=== PATIENT | male | born 1945 | race Caucasian/White ===

== ENCOUNTER 2019-03-30 15:02 | Emergency (ER) | payer OTHER, MEDICARE ==
[2019-03-30 15:19] VITALS: BP 145/88; PULSE 60; TEMP 97.4; BMI 40.3
[2019-03-30] MEDS ORDERED: ACETAMINOPHEN 325 MG TABLET (FP) PO ONE (15:47)
[2019-03-30] MEDS ORDERED: ACETAMINOPHEN 325 MG TABLET (FP) ONE (15:50)
--- NOTE | 2019-03-30 16:02 | PDOC ---
History of Present Illness - General Chief Complaint: Pain, Acute Stated Complaint: LT. KNEE PAIN/ FALL Time Seen by Provider: 03/30/19 15:23 History Source: Patient Exam Limitations: No Limitations Past History - Past Medical History Allergies/Adverse Reactions: Allergies Allergy/AdvReac Type Severity Reaction Status Date / Time No Known Allergies Allergy Verified 03/30/19 16:25 Home Medications: Ambulatory Orders Ascorbate Calcium [Vitamin C] 500 mg PO HS 12/07/15 Aspirin [ASA -] 81 mg PO HS 12/07/15 Atenolol [Tenormin -] 50 mg PO DAILY 12/07/15 Atorvastatin Ca [Lipitor] 20 mg PO DAILY 12/07/15 Multivit-Min/FA/Lycopen/Lutein [Centrum Silver Men Tablet] 1 each PO DAILY 03/30 Walker [Ultra-Light Rollator] 1 each MC DAILY #1 each 03/30/19 Anemia: No Asthma: No Cancer: No Cardiac Disorders: Yes (mi) CVA: No COPD: No CHF: No Dementia: No Diabetes: No GI Disorders: No Disorders: No HTN: Yes Hypercholesterolemia: Yes Liver Disease: No Seizures: No Thyroid Disease: No - Surgical History Abdominal Surgery: Yes Appendectomy: No Cardiac Surgery: Yes (STENTS) Cholecystectomy: No Lung Surgery: No Neurologic Surgery: No Orthopedic Surgery: No - Immunization History Immunization Up to Date: No - Suicide/Smoking/Psychosocial Hx Smoking Status: No Smoking History: Former smoker Have you smoked in the past 12 months: No Number of Cigarettes Smoked Daily: 0 If you are a former smoker, when did you quit?: 1989 Information on smoking cessation initiated: No Hx Alcohol Use: No Drug/Substance Use Hx: No *Physical Exam - Vital Signs Last Vital Signs Temp Pulse Resp BP Pulse Ox 97.4 F L 60 16 145/88 99 03/30/19 15:15 03/30/19 15:15 03/30/19 15:15 03/30/19 15:15 03/30/19 15:15 - Physical Exam General Appearance: No: Apparent Distress HEENT: positive: Other (no head trauma) Neck: positive: Supple Extremity: positive: Erythema, Other (skin abrasion to L knee, no active bleeding, surrounding erythema and warmth to L knee, able to flex L knee and extend most of the knee; no joint effusion, no deformity) Integumentary: positive: Warm. negative: Ecchymosis, Bruising Neurologic: positive: Alert, Normal Mood/Affect ED Treatment Course - RADIOLOGY Radiology Studies Ordered: Category Date Time Status KNEE 4 POS-LEFT [RAD] Stat Radiology 03/30/19 15:47 Ordered Medical Decision Making - Medical Decision Making 73 y/o M with hx of HTN, HLD, CAD s/p PR, gallstones with gallstone drain presents s/p mechanical fall today. States he was in [place] and missed 1 step and fell, landing predominantly on L knee. 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 Patient states his knee initially felt fine and he was able to ambulate on it but after a few hours, started noting pain to L knee. Denies head/neck trauma, LOC, dizziness, headache, neck pain, chest pain, fever. L knee xray negative for fracture Likely knee sprain Abrasion covered with Bacitracin; L knee chi-wrapped Will refer to orthopedics 03/30/19 16:43 *DC/Admit/Observation/Transfer Diagnosis at time of Disposition: Sprain, knee Qualifiers: Encounter type: initial encounter Involved ligament of knee: other ligament Laterality: left Qualified Code(s): S83.8X2A - Sprain of other specified parts of left knee, initial encounter - Discharge Dispostion Disposition: HOME Condition at time of disposition: Stable Decision to Admit order: No - Prescriptions Prescriptions: Walker [Ultra-Light Rollator] 1 each MC DAILY #1 each - Referrals Referrals: Josue Tran MD [Staff Physician] - 2 Days - Patient Instructions Printed Discharge Instructions: DI for Knee Sprain Additional Instructions: Thank you for choosing [facility]. It was a pleasure taking care of you. You may take Motrin 600 mg every 6 hours by mouth as needed for mild to moderate pain. Take Motrin with food. A prescription for walker was sent to your pharmacy You may apply ice for the first 48 hours and then switch to warm compresses You were referred to orthopedic doctor for further evaluation Return to the Emergency Department if your symptoms worsen or persist or have other concerning symptoms. - Post Discharge Activity
[2019-03-30] MEDS ORDERED: SULFAMETHOXAZOLE/TRIMETHOPRIM 800MG/160MG D.S. TABLET PO ONE (16:21)
[2019-03-30] MEDS ORDERED: CEPHALEXIN MONOHYDRATE 500 MG CAPSULE (UD) PO ONE (16:21)
[2019-03-30] MEDS ORDERED: SULFAMETHOXAZOLE/TRIMETHOPRIM 800MG/160MG D.S. TABLET ONE (16:26)
[2019-03-30] MEDS ORDERED: CEPHALEXIN MONOHYDRATE 500 MG CAPSULE (UD) ONE (16:26)
== END 2019-03-30 16:49 | disposition home or self-care (01) ==
LOC: JERFT 15:02
DX: S83.8X2A Sprain of other specified parts of left knee, initial encounter (principal); W10.9XXA Fall (on) (from) unspecified stairs and steps, initial encounter; Y93.89 Activity, other specified; Y92.22 Religious institution as the place of occurrence of the external cause; I10 Essential (primary) hypertension; E78.5 Hyperlipidemia, unspecified; I25.10 Atherosclerotic heart disease of native coronary artery without angina pectoris; I25.2 Old myocardial infarction
CPT/HCPCS: 73564-TC-LT-FY; 99281-25

== ENCOUNTER 2019-06-02 08:41 | Inpatient (IN) | payer OTHER, MEDICARE ==
--- NOTE | 2019-06-02 09:10 | PDOC ---
Attending Attestation - Resident Resident Name: Faustino Ruggiero - HPI HPI: 06/02/19 10:07 Pt presents to the ED complaining of 2 hours of substernal chest pain that began when he awoke from sleep. Also complaining of shortness of breath. Extensive cardiac history as described in resident note. Currently chest pain free. - Physicial Exam PE: 06/02/19 10:14 Agree with resident exam. PAtient is alert and oriented and in no acute distress. CV: RRR no m/r/g. Pulm: CTA b/l abdomen: soft, non tender, non distended Ext: no edema or tenderness - Medical Decision Making 06/02/19 11:11 Pt presents to the ED complaining of chest pain and shortness of breath. Currently chest pain free. EKG shows no ischemia, but, given history, will admit for observation for r/o MT.
[2019-06-02] MEDS ORDERED: ASPIRIN 81 MG CHEWABLE TABLETS PO ONE (09:47)
[2019-06-02] MEDS ORDERED: ASPIRIN 81 MG CHEWABLE TABLETS ONE (10:16)
[2019-06-02 10:37] LABS: BASO % 0.7 % (0-2.0); EOS % 1.4 % (0-4.5); HEMATOCRIT 39.3 % (35.4-49); HEMOGLOBIN 13.7 GM/dL (11.7-16.9); LYMPH % 16.5 % (8-40); MCH 31.5 pg (25.7-33.7); MCHC 34.8 g/dl (32.0-35.9); MEAN CELL VOLUME 90.4 fl (80-96); MEAN PLT VOLUME 8.1 fl (7.5-11.1); MONO % 4.7 % (3.8-10.2); NEUT % 76.7 % (42.8-82.8); RBC 4.35 M/mm3 (4.00-5.60); RDW 14.2 % (11.9-15.9); WHITE BLOOD COUNT 8.1 K/mm3 (4.0-10.0)
[2019-06-02 10:53] LABS: PLATELET COUNT 294 K/MM3 (134-434)
[2019-06-02 11:18] LABS: ALBUMIN 3.5 g/dl (3.4-5.0); ALK PHOS 138 U/L (45-117); ANION GAP 7 MMOL/L (8-16); BILIRUBIN,TOTAL 0.9 mg/dL (0.2-1); CALCIUM 9.4 mg/dL (8.5-10.1); CHLORIDE 111 mmol/L (98-107); CO2 24 mmol/L (21-32); GLUCOSE,RANDOM 112 mg/dL (74-106); N-TERMINAL BNP 123.4 pg/ml (5-125); SGOT/AST 28 U/L (15-37); SGPT/ALT 35 U/L (13-61); SODIUM 142 mmol/L (136-145); TOT PROT 6.8 g/dl (6.4-8.2)
--- NOTE | 2019-06-02 11:46 | PDOC ---
History of Present Illness - General Chief Complaint: Chest Pain Stated Complaint: CHEST PAIN Time Seen by Provider: 06/02/19 09:07 - History of Present Illness Initial Comments: 06/02/19 12:07 Mr. Benítez is a 74 yo male w/ pmh of HTN, HLD, s/p 5 cardiac stents, w/ recent "gall bladder procedure" at [facility] where a drain was placed ( patient had GB out several years ago) who presents for evaluation of left sided chest pain that reportedly woke him from sleep this morning. Patient reports he did not have these symptoms when he went to bed last night. Denies any other symptoms at this time. Describes pain as pressure and non-radiating. Took a single baby aspirin. The patient denies shortness of breath, headache and dizziness. Denies fever, chills, nausea, vomit, diarrhea and constipation. Denies dysuria, frequency, urgency and hematuria. Past History - Past Medical History Allergies/Adverse Reactions: Allergies Allergy/AdvReac Type Severity Reaction Status Date / Time No Known Allergies Allergy Verified 06/02/19 08:53 Home Medications: Ambulatory Orders Ascorbate Calcium [Vitamin C] 500 mg PO DAILY 12/07/15 Aspirin [ASA -] 81 mg PO DAILY 12/07/15 Atenolol [Tenormin -] 50 mg PO DAILY 12/07/15 Atorvastatin Ca [Lipitor] 20 mg PO DAILY 12/07/15 Multivit-Min/FA/Lycopen/Lutein [Centrum Silver Men Tablet] 1 each PO DAILY 03/30 Ciprofloxacin [Cipro (Restricted To Id)] 250 mg PO BID 06/02/19 Furosemide [Lasix -] 40 mg PO DAILY 06/02/19 Multivit-Min/FA/Lycopen/Lutein [Centrum Silver Men Tablet] 1 each PO DAILY 06/02 Anemia: No Asthma: No Cancer: No Cardiac Disorders: Yes (mi) CVA: No COPD: No CHF: No Dementia: No Diabetes: No GI Disorders: No Disorders: No HTN: Yes Hypercholesterolemia: Yes Liver Disease: No Seizures: No Thyroid Disease: No - Surgical History Abdominal Surgery: Yes Appendectomy: No Cardiac Surgery: Yes (STENTS) Cholecystectomy: Yes (with drain) Lung Surgery: No Neurologic Surgery: No Orthopedic Surgery: No - Immunization History Immunization Up to Date: No - Suicide/Smoking/Psychosocial Hx Smoking Status: No Smoking History: Never smoked Have you smoked in the past 12 months: No Number of Cigarettes Smoked Daily: 0 If you are a former smoker, when did you quit?: 1989 Alcohol Use: No Drug/Substance Use Hx: No Review of Systems - Review of Systems Comments:: 06/02/19 12:10 GENERAL/CONSTITUTIONAL: No fever or chills. No weakness. HEAD, EYES, EARS, NOSE AND THROAT: No change in vision. No ear pain or discharge. No sore throat. CARDIOVASCULAR: +Chest pain as described. No shortness of breath RESPIRATORY: No cough, wheezing, or hemoptysis. GASTROINTESTINAL: No nausea, vomiting, diarrhea or constipation. GENITOURINARY: No dysuria, frequency, or change in urination. MUSCULOSKELETAL: No joint or muscle swelling or pain. No neck or back pain. SKIN: No rash NEUROLOGIC: No headache, vertigo, loss of consciousness, or change in strength/ sensation. ENDOCRINE: No increased thirst. No abnormal weight change HEMATOLOGIC/LYMPHATIC: No anemia, easy bleeding, or history of blood clots. ALLERGIC/IMMUNOLOGIC: No hives or skin allergy. *Physical Exam - Vital Signs Last Vital Signs Temp Pulse Resp BP Pulse Ox 97.8 F 56 L 18 156/79 99 06/02/19 08:50 06/02/19 08:50 06/02/19 08:50 06/02/19 08:50 06/02/19 08:50 - Physical Exam Comments: 06/02/19 12:10 GENERAL: Awake, alert, and fully oriented, in no acute distress HEAD: No signs of trauma, normocephalic, atraumatic EYES: PERRLA, EOMI, sclera anicteric, conjunctiva clear ENT: Auricles normal inspection, hearing grossly normal, nares patent, oropharynx clear without exudates. Moist mucosa NECK: Normal ROM, supple, no lymphadenopathy, JVD, or masses LUNGS: No distress, speaks full sentences, clear to auscultation bilaterally HEART: Regular rate and rhythm, normal S1 and S2, no murmurs, rubs or gallops, peripheral pulses normal and equal bilaterally. ABDOMEN: Soft, nontender, normoactive bowel sounds. No guarding, no rebound. No masses EXTREMITIES: Normal inspection, Normal range of motion, no edema. No clubbing or cyanosis. NEUROLOGICAL: Cranial nerves II through XII grossly intact. Normal speech, normal gait, no focal sensorimotor deficits SKIN: Warm, Dry, normal turgor, no rashes or lesions noted. ED Treatment Course - LABORATORY CBC & Chemistry Diagram: 06/02/19 10:20 06/02/19 10:20 - ADDITIONAL ORDERS Additional order review: Laboratory Results 06/02/19 10:20 Sodium 142 Potassium 4.0 Chloride 111 H Carbon Dioxide 24 Anion Gap 7 L BUN 19.0 H Creatinine 1.0 Est GFR (CKD-EPI)AfAm 86.76 Est GFR (CKD-EPI)NonAf 74.86 Random Glucose 112 H Calcium 9.4 Total Bilirubin 0.9 AST 28 ALT 35 Alkaline Phosphatase 138 H Creatine Kinase 58 Troponin I < 0.02 B-Natriuretic Peptide 123.4 Total Protein 6.8 Albumin 3.5 06/02/19 10:20 RBC 4.35 MCV 90.4 MCHC 34.8 RDW 14.2 MPV 8.1 Neutrophils % 76.7 Lymphocytes % 16.5 D Monocytes % 4.7 Eosinophils % 1.4 D Basophils % 0.7 D - RADIOLOGY Radiology Studies Ordered: Category Date Time Status CHEST PA & LAT [RAD] Stat Radiology 06/02/19 11:21 Ordered CHEST X-RAY PORTABLE* [RAD] Stat Radiology 06/02/19 09:27 Completed - Medications Given in the ED: ED Medications Discontinued Medications Generic Name Dose Route Start Last Admin Trade Name Freq PRN Reason Stop Dose Admin Aspirin 243 mg 06/02/19 09:47 06/02/19 10:32 Asa - PO 06/02/19 09:48 243 mg ONCE ONE Administration Medical Decision Making - Medical Decision Making 06/02/19 12:15 Mr. Benítez is a 74 yo male w/ pmh as described who presents for evaluation of symptoms concerning for ACS vs. infection vs. MSK pain. Patient evaluated with cardiology labs + XR + EKG. Non-contributory findings on labs as below as well as non-specific EKG. Patient XR concerning for possible air under diaphragm not seen on repeat XR. Patient admitted for further cardiology evaluation. Laboratory Results - last 24 hr 06/02/19 06/02/19 10:20 10:20 WBC 8.1 RBC 4.35 Hgb 13.7 Hct 39.3 MCV 90.4 MCH 31.5 MCHC 34.8 RDW 14.2 Plt Count 294 D MPV 8.1 Absolute Neuts (auto) 6.2 Neutrophils % 76.7 Lymphocytes % 16.5 D Monocytes % 4.7 Eosinophils % 1.4 D Basophils % 0.7 D Nucleated RBC % 0 Sodium 142 Potassium 4.0 Chloride 111 H Carbon Dioxide 24 Anion Gap 7 L BUN 19.0 H Creatinine 1.0 Est GFR (CKD-EPI)AfAm 86.76 Est GFR (CKD-EPI)NonAf 74.86 Random Glucose 112 H Calcium 9.4 Total Bilirubin 0.9 AST 28 ALT 35 Alkaline Phosphatase 138 H Creatine Kinase 58 Troponin I < 0.02 B-Natriuretic Peptide 123.4 Total Protein 6.8 Albumin 3.5 *DC/Admit/Observation/Transfer Diagnosis at time of Disposition: Chest pain Qualifiers: Chest pain type: unspecified Qualified Code(s): R07.9 - Chest pain, unspecified - Discharge Dispostion Disposition: HOME Decision to Admit order: Yes - Referrals Referrals: Armando Feliciano MD [Primary Care Provider] - - Patient Instructions - Post Discharge Activity
--- NOTE | 2019-06-02 11:54 | EKG ---
Test Reason : Blood Pressure : / mmHG Vent. Rate : 060 BPM Atrial Rate : 060 BPM P-R Int : 196 ms QRS Dur : 110 ms QT Int : 432 ms P-R-T Axes : 032 -04 057 degrees QTc Int : 432 ms NORMAL SINUS RHYTHM WITH SINUS ARRHYTHMIA NORMAL ECG WHEN COMPARED WITH ECG OF 11-JAN-2016 22:06, NO SIGNIFICANT CHANGE WAS FOUND Confirmed by RADU PIMENTEL, KARMA ([id number]) on 06/02/2019 11:54:19 AM Referred By: Confirmed By:KARMA LOVELACE MD
--- NOTE | 2019-06-02 13:13 | CON.CARD ---
Cardiology Consult (text) - Consultation Consultation Note: cc: cp hpi: 74 m hx htn, hld, cad s/p pci, here with cp. This AM woke up and felt mild left chest pressure. No radiation. No sob, palps dizzy loc pnd orthopnea le edema. CP persisted for several hours and came to ER around 9 am. Now reports cp resolved. No recent cp or anginal sxs. pmh: per hpi psh: gall bladder surgery social: no tob fam: no premature cad ros: per hpi; some abd pain from gb surgery and drain present; all others nl meds: Home Medications Medication Instructions Recorded Ascorbate Calcium [Vitamin C] 500 mg PO DAILY 12/07/15 Aspirin [ASA -] 81 mg PO DAILY 12/07/15 Atenolol [Tenormin -] 50 mg PO DAILY 12/07/15 Atorvastatin Ca [Lipitor] 20 mg PO DAILY 12/07/15 Multivit-Min/FA/Lycopen/Lutein 1 each PO DAILY 03/30/19 [Centrum Silver Men Tablet] Ciprofloxacin [Cipro (Restricted 250 mg PO BID 06/02/19 To Id)] Furosemide [Lasix -] 40 mg PO DAILY 06/02/19 Multivit-Min/FA/Lycopen/Lutein 1 each PO DAILY 06/02/19 [Centrum Silver Men Tablet] pe: Vital Signs Period Temp Pulse Resp BP Sys/العراقي Pulse Ox Last 24 Hr 97.8 F 56 18 156/79 99 nad no jvd rrr s1s2 no mrg cta bl nl eff aao3 no le e/c/c abd nt nd pos bs no jaundice diaphoresis pos dp pt no carotid bruits Laboratory Last Values WBC 8.1 K/mm3 (4.0-10.0) 06/02/19 10:20 RBC 4.35 M/mm3 (4.00-5.60) 06/02/19 10:20 Hgb 13.7 GM/dL (11.7-16.9) 06/02/19 10:20 Hct 39.3 % (35.4-49) 06/02/19 10:20 MCV 90.4 fl (80-96) 06/02/19 10:20 MCH 31.5 pg (25.7-33.7) 06/02/19 10:20 MCHC 34.8 g/dl (32.0-35.9) 06/02/19 10:20 RDW 14.2 % (11.9-15.9) 06/02/19 10:20 Plt Count 294 K/MM3 (134-434) D 06/02/19 10:20 MPV 8.1 fl (7.5-11.1) 06/02/19 10:20 Absolute Neuts (auto) 6.2 K/mm3 (1.5-8.0) 06/02/19 10:20 Neutrophils % 76.7 % (42.8-82.8) 06/02/19 10:20 Lymphocytes % 16.5 % (8-40) D 06/02/19 10:20 Monocytes % 4.7 % (3.8-10.2) 06/02/19 10:20 Eosinophils % 1.4 % (0-4.5) D 06/02/19 10:20 Basophils % 0.7 % (0-2.0) D 06/02/19 10:20 Nucleated RBC % 0 % (0-0) 06/02/19 10:20 Sodium 142 mmol/L (136-145) 06/02/19 10:20 Potassium 4.0 mmol/L (3.5-5.1) 06/02/19 10:20 Chloride 111 mmol/L (98-107) H 06/02/19 10:20 Carbon Dioxide 24 mmol/L (21-32) 06/02/19 10:20 Anion Gap 7 MMOL/L (8-16) L 06/02/19 10:20 BUN 19.0 mg/dL (7-18) H 06/02/19 10:20 Creatinine 1.0 mg/dL (0.55-1.3) 06/02/19 10:20 Est GFR (CKD-EPI)AfAm 86.76 06/02/19 10:20 Est GFR (CKD-EPI)NonAf 74.86 06/02/19 10:20 Random Glucose 112 mg/dL (74-106) H 06/02/19 10:20 Calcium 9.4 mg/dL (8.5-10.1) 06/02/19 10:20 Total Bilirubin 0.9 mg/dL (0.2-1) 06/02/19 10:20 AST 28 U/L (15-37) 06/02/19 10:20 ALT 35 U/L (13-61) 06/02/19 10:20 Alkaline Phosphatase 138 U/L (45-117) H 06/02/19 10:20 Creatine Kinase 58 U/L (26-308) 06/02/19 10:20 Troponin I < 0.02 ng/ml (0.00-0.05) 06/02/19 10:20 B-Natriuretic Peptide 123.4 pg/ml (5-125) 06/02/19 10:20 Total Protein 6.8 g/dl (6.4-8.2) 06/02/19 10:20 Albumin 3.5 g/dl (3.4-5.0) 06/02/19 10:20 cxr: clear lungs ecg: sr nl intervals no ischemic changes a/p: 74 m hx htn, hld, cad s/p pci, here with cp. cp: -resolved now -ecg and first set ce's unremarkable -given his cad hx would admit to finish josh on tele -check echo -if ce's neg would no nuclear stress test tomorrow hld: -cont statin htn: -cont home meds cad, pci: -as above -cont asa, statin, bb
[2019-06-02] MEDS ORDERED: ATORVASTATIN CA 20 MG TABLET (FP) ONE (22:09)
[2019-06-02] MEDS: ATORVASTATIN CA 20 MG TABLET (FP) PO SCH (22:12)
[2019-06-03 07:21] LABS: BASO % 0.5 % (0-2.0); EOS % 3.4 % (0-4.5); HEMATOCRIT 38.6 % (35.4-49); HEMOGLOBIN 13.1 GM/dL (11.7-16.9); LYMPH % 26.2 % (8-40); MCH 31.3 pg (25.7-33.7); MEAN CELL VOLUME 92.1 fl (80-96); MEAN PLT VOLUME 8.3 fl (7.5-11.1); MONO % 6.7 % (3.8-10.2); NEUT % 63.2 % (42.8-82.8); PLATELET COUNT 268 K/MM3 (134-434); RBC 4.19 M/mm3 (4.00-5.60); RDW 14.3 % (11.9-15.9)
[2019-06-03 07:46] LABS: ALBUMIN 3.3 g/dl (3.4-5.0); BLOOD UREA NITROGEN 21.5 mg/dL (7-18); CALCIUM 8.7 mg/dL (8.5-10.1); CREATININE 0.9 mg/dL (0.55-1.3); POTASSIUM 3.9 mmol/L (3.5-5.1); TOT PROT 6.4 g/dl (6.4-8.2)
--- NOTE | 2019-06-03 08:49 | PN ---
Progress Note, Physician Chief Complaint: cp History of Present Illness: no more L chest heaviness. no sob, palp, syncope was given breakfast this morning - Current Medication List Current Medications: Active Medications Aspirin (Asa -) 81 mg PO DAILY [facility] Atenolol (Tenormin -) 50 mg PO DAILY Y[facility]ON[facility] Atorvastatin Calcium (Lipitor -) 20 mg PO HS [facility]ONNE Last Admin: 06/02/19 22:12 Dose: 20 mg Furosemide (Lasix -) 40 mg PO DAILY [facility] - Objective Vital Signs: Vital Signs Temperature 98.5 F 06/03/19 06:28 Pulse Rate 58 L 06/03/19 06:28 Respiratory Rate 20 06/03/19 06:28 Blood Pressure 151/85 06/03/19 06:28 O2 Sat by Pulse Oximetry (%) 97 06/03/19 06:28 Constitutional: Yes: No Distress, Calm, Obese Cardiovascular: Yes: Regular Rate and Rhythm, S1, S2 Respiratory: Yes: Regular, CTA Bilaterally. No: Accessory Muscle Use, Rales, Wheezes Extremities: No: Cold Edema: Yes (mild nonpitting) Neurological: Yes: Alert, Oriented Psychiatric: No: Agitated Labs: CBC, BMP 06/03/19 06:10 06/03/19 06:10 Assessment/Plan a/p: 74 m hx htn, hld, cad s/p pci, here with cp. cp: -ecg non-ischemic, trop neg x 3 -last stress test few yrs ago, per pt -no more sx's here -pt was for nuclear stress test today, however he was fed breakfast. -will do dobutamine stress echo today (he has not received atenolol here)--if adequate HR and no hi risk ischemia (e.g. LAD), then he will be discharged for outpt f/u with ginelli cad, pci: -as above -cont asa, statin (hold bb until completes stress test) htn: -bp reasonable -cont home meds, observe trend
[2019-06-03] MEDS: ASPIRIN 81 MG CHEWABLE TABLETS PO SCH (10:00)
[2019-06-03] MEDS: FUROSEMIDE 40 MG TABLET (FP) PO SCH (10:00)
[2019-06-03] MEDS: ATENOLOL 50 MG TABLET (FP) PO SCH (11:00)
[2019-06-03] MEDS: CIPROFLOXACIN 250 MG TABLET (RESTRICTED TO ID) PO SCH ×2 (12:24→21:50)
--- NOTE | 2019-06-03 12:37 | HP ---
Admitting History and Physical - Primary Care Physician PCP: Armando Feliciano - Admission History of Present Illness: pt seen/ examined in er chart reviewed discussed with pt/ Per Er records and I concur Mr. Benítez is a 74 yo male w/ pmh of HTN, HLD, s/p 5 cardiac stents, w/ recent "gall bladder procedure" at [facility] where a drain was placed ( patient had GB out several years ago) who presents for evaluation of left sided chest pain that reportedly woke him from sleep this morning. Patient reports he did not have these symptoms when he went to bed last night. Denies any other symptoms at this time. Describes pain as pressure and non-radiating. Took a single baby aspirin. The patient denies shortness of breath, headache and dizziness. Denies fever, chills, nausea, vomit, diarrhea and constipation. Denies dysuria, frequency, urgency and hematuria [place] ruled out Discussed with cardiology As pt ate food and also received Atenolol-- Stress test scheduled for tomorrow. Pt at present comfortable denies cp/ sob/abd pain no fever/ chills no cough no headache/ dizziness . History Source: Patient, Family Member Limitations to Obtaining History: No Limitations - Past Medical History Cardiovascular: Yes: CAD, HTN, Hyperlipdemia, [place], Other (stents x 5) Gastrointestinal: Yes: Constipation Endocrine: Yes: Diabetes Mellitus (borderline) - Smoking History Smoking history: Never smoked Have you smoked in the past 12 months: No Aproximately how many cigarettes per day: 0 If you are a former smoker, when did you quit?: 1989 - Alcohol/Substance Use Hx Alcohol Use: No History of Substance Use: reports: None Home Medications - Allergies Allergies/Adverse Reactions: Allergies Allergy/AdvReac Type Severity Reaction Status Date / Time No Known Allergies Allergy Verified 06/02/19 08:53 - Home Medications Home Medications: Ambulatory Orders Ascorbate Calcium [Vitamin C] 500 mg PO DAILY 12/07/15 Aspirin [ASA -] 81 mg PO DAILY 12/07/15 Atenolol [Tenormin -] 50 mg PO DAILY 12/07/15 Atorvastatin Ca [Lipitor] 20 mg PO DAILY 12/07/15 Multivit-Min/FA/Lycopen/Lutein [Centrum Silver Men Tablet] 1 each PO DAILY 03/30 Ciprofloxacin [Cipro (Restricted To Id)] 250 mg PO BID 06/02/19 Furosemide [Lasix -] 40 mg PO DAILY 06/02/19 Multivit-Min/FA/Lycopen/Lutein [Centrum Silver Men Tablet] 1 each PO DAILY 06/02 Family Disease History - Family Disease History Family History: Unremarkable Review of Systems Findings/Remarks: see [facility] Physical Examination Vital Signs: Vital Signs Temperature 98.5 F 06/03/19 06:28 Pulse Rate 58 L 06/03/19 06:28 Respiratory Rate 20 06/03/19 06:28 Blood Pressure 151/85 06/03/19 06:28 O2 Sat by Pulse Oximetry (%) 97 06/03/19 06:28 Constitutional: Yes: No Distress, Calm, Obese Eyes: Yes: Conjunctiva Clear Neck: Yes: Supple Cardiovascular: Yes: Regular Rate and Rhythm Respiratory: Yes: CTA Bilaterally Gastrointestinal: Yes: Soft, Other (drain + --) Edema: No Neurological: Yes: Alert Psychiatric: Yes: Alert Labs: CBC, BMP 06/03/19 06:10 06/03/19 06:10 Imaging - Results Chest X-ray: Report Reviewed EKG: Report Reviewed Problem List - Problems (1) Chest pain Code(s): R07.9 - CHEST PAIN, UNSPECIFIED Qualifiers: Chest pain type: unspecified Qualified Code(s): R07.9 - Chest pain, unspecified (2) HTN (hypertension) Code(s): I10 - ESSENTIAL (PRIMARY) HYPERTENSION (3) Obesity Code(s): E66.9 - OBESITY, UNSPECIFIED Assessment/Plan Discussed Monitor on tele meds reviewed continue abx stress test tomorrow will follow
--- NOTE | 2019-06-03 14:37 | EKG ---
Test Reason : Blood Pressure : / mmHG Vent. Rate : 057 BPM Atrial Rate : 057 BPM P-R Int : 206 ms QRS Dur : 112 ms QT Int : 450 ms P-R-T Axes : 031 000 045 degrees QTc Int : 438 ms SINUS BRADYCARDIA WITH MARKED SINUS ARRHYTHMIA OTHERWISE NORMAL ECG WHEN COMPARED WITH ECG OF 02-JUN-2019 08:35, NO SIGNIFICANT CHANGE WAS FOUND Confirmed by ALFONSO SHETH MD ([id number]) on 06/03/2019 2:37:11 PM Referred By: Confirmed By:ALFONSO SHETH MD
[2019-06-03 15:49] VITALS: BMI 40.4
[2019-06-03] MEDS: ATORVASTATIN CA 20 MG TABLET (FP) PO SCH (21:49)
--- NOTE | 2019-06-04 09:23 | PN ---
Progress Note (short form) - Note Progress Note: for stress test vitals and labs noted S1 S2 RRR Lungs clear Abd- soft, NT No edema PLAN for stress test today cardiac enzymes negative Problem List - Problems (1) Obesity Code(s): E66.9 - OBESITY, UNSPECIFIED (2) Chest pain Code(s): R07.9 - CHEST PAIN, UNSPECIFIED Qualifiers: Chest pain type: unspecified Qualified Code(s): R07.9 - Chest pain, unspecified
[2019-06-04] MEDS ORDERED: CIPROFLOXACIN 250 MG TABLET (RESTRICTED TO ID) PO SCH (10:00)
[2019-06-04] MEDS ORDERED: REGADENOSON 0.4 MG/5 ML PRE-FILLED SYRINGE IVPUSH ONE ×2 (10:00→10:08)
[2019-06-04] MEDS: FUROSEMIDE 40 MG TABLET (FP) PO SCH (12:45)
[2019-06-04] MEDS: ASPIRIN 81 MG CHEWABLE TABLETS PO SCH (12:46)
[2019-06-04] MEDS: ATENOLOL 50 MG TABLET (FP) PO SCH (12:46)
--- NOTE | 2019-06-04 15:01 | PN ---
Progress Note, Physician Chief Complaint: seen and examined on tele after stress Denies CP or SOB Stress test result not yet available TELE: NSR w/ one 3 beat run NSVT - Current Medication List Current Medications: Active Medications Aspirin (Asa -) 81 mg PO DAILY [facility] Last Admin: 06/04/19 12:46 Dose: 81 mg Atenolol (Tenormin -) 50 mg PO DAILY [facility] Last Admin: 06/04/19 12:46 Dose: 50 mg Atorvastatin Calcium (Lipitor -) 20 mg PO HS [facility] Last Admin: 06/03/19 21:49 Dose: 20 mg Ciprofloxacin (Cipro (Restricted To Id)) 250 mg PO BID [facility] Furosemide (Lasix -) 40 mg PO DAILY [facility] Last Admin: 06/04/19 12:45 Dose: 40 mg - Objective Vital Signs: Vital Signs Temperature 98 F 06/04/19 05:35 Pulse Rate 56 L 06/04/19 05:35 Respiratory Rate 20 06/04/19 05:35 Blood Pressure 149/85 06/04/19 05:35 O2 Sat by Pulse Oximetry (%) 99 06/04/19 08:28 Constitutional: Yes: No Distress, Calm Cardiovascular: Yes: Regular Rate and Rhythm Respiratory: Yes: CTA Bilaterally Gastrointestinal: Yes: Soft (NT) Edema: No Neurological: Yes: Alert, Oriented Labs: CBC, BMP 06/03/19 06:10 06/03/19 06:10 - ....Imaging EKG: Image Reviewed Assessment/Plan a/p: 74 m hx htn, hld, cad s/p pci, here with cp. cp: -ecg non-ischemic, trop neg x 3 -last stress test few yrs ago, per pt -no more sx's here -Awaiting today's nuclear stress result for further reccs. -If negative or low risk findings, can d/c home with outpatient f/u w/ Dr. Rader cad, pci: -as above -cont B-Maria Alejandra htn: -bp reasonable -cont home meds, observe trend NSVT: -Cont b-maria alejandra, await stress findings -Keep K and Mg repleted
[2019-06-04] MEDS: ATORVASTATIN CA 20 MG TABLET (FP) PO SCH (21:49)
[2019-06-05 01:03] VITALS: BP 133/74; PULSE 57; TEMP 98.2
--- NOTE | 2019-06-05 09:51 | DS ---
Physical Examination Vital Signs: Vital Signs Temperature 98.2 F 06/04/19 21:00 Pulse Rate 57 L 06/04/19 21:00 Respiratory Rate 20 06/04/19 21:00 Blood Pressure 133/74 06/04/19 21:00 O2 Sat by Pulse Oximetry (%) 98 06/04/19 21:00 Labs: CBC, BMP 06/03/19 06:10 06/03/19 06:10 Discharge Summary Reason For Visit: CHEST PAIN Hospital Course: transferred to [facility] for cardiac cath as pt's stress test was abnormal and he is symptomatic Condition: Guarded - Instructions Disposition: TRANSFER ACUTE CARE/OTHER HOSP - Home Medications Comprehensive Discharge Medication List: Ambulatory Orders Ascorbate Calcium [Vitamin C] 500 mg PO DAILY 12/07/15 Aspirin [ASA -] 81 mg PO DAILY 12/07/15 Atenolol [Tenormin -] 50 mg PO DAILY 12/07/15 Atorvastatin Ca [Lipitor] 20 mg PO DAILY 12/07/15 Multivit-Min/FA/Lycopen/Lutein [Centrum Silver Men Tablet] 1 each PO DAILY 03/30 Ciprofloxacin [Cipro (Restricted To Id)] 250 mg PO BID 06/02/19 Furosemide [Lasix -] 40 mg PO DAILY 06/02/19 Multivit-Min/FA/Lycopen/Lutein [Centrum Silver Men Tablet] 1 each PO DAILY 06/02
== END 2019-06-05 00:50 | disposition short-term general hospital (02) | DRG 303 ==
LOC: JER 08:41 → JERBED 12:05 → J4W 06-03 15:01
PROVIDERS: ADMIT Internal Medicine; ATTEND Internal Medicine
DX: I25.110 Atherosclerotic heart disease of native coronary artery with unstable angina pectoris (principal); Z68.41 Body mass index [BMI] 40.0-44.9, adult; I47.1 Supraventricular tachycardia; E66.9 Obesity, unspecified; I10 Essential (primary) hypertension; E78.5 Hyperlipidemia, unspecified; Z98.61 Coronary angioplasty status; R07.9 Chest pain, unspecified
CPT/HCPCS: 36415; 71045-TC-FY; 71046-TC-FY; 78452-TC; 80053; 80061; 82550; 83036; 83721; 83880; 84484; 85025; 93005; 93010; 93017; 99285-25; A9502; J2785

== ENCOUNTER 2022-10-19 20:51 | Observation (INO) | payer OTHER, MEDICARE ==
[2022-10-19 22:07] VITALS: BMI 42.3
[2022-10-19] MEDS ORDERED: FAMOTIDINE 20 MG/50 ML IVPB 20 MG/50 ML MG IVPB ONE ×2 (22:36→23:07)
[2022-10-19] MEDS ORDERED: ACETAMINOPHEN 1000 MG/100 ML BAG IVPB ONE (22:36)
[2022-10-19] MEDS ORDERED: ACETAMINOPHEN INJECTION 100 ML IVPB ONE (23:06)
[2022-10-19 23:31] LABS: BASO % 0.2 % (0-2.0); EOS % 0.3 % (0-4.5); HEMATOCRIT 43.8 % (35.4-49); HEMOGLOBIN 14.7 GM/dL (11.7-16.9); LYMPH % 7.2 % (8-40); MCH 31.5 pg (25.7-33.7); MCHC 33.5 g/dl (32.0-35.9); MEAN CELL VOLUME 94.2 fl (80-96); MEAN PLT VOLUME 8.7 fl (7.5-11.1); MONO % 3.6 % (3.8-10.2); NEUT % 88.7 % (42.8-82.8); PLATELET COUNT 259 10^3/uL (134-434); RBC 4.66 M/mm3 (4.00-5.60); RDW 15.2 % (11.9-15.9); WHITE BLOOD COUNT 17.4 K/mm3 (4.0-10.0)
[2022-10-19 23:53] LABS: ALBUMIN 3.8 g/dl (3.4-5.0); CALCIUM 9.4 mg/dL (8.5-10.1); INR 1.22 (0.83-1.09); PROTHROMBIN TIME (PATIENT) 14.1 SEC (9.7-13.0)
[2022-10-19 23:54] LABS: BLOOD UREA NITROGEN 16.4 mg/dL (7-18)
[2022-10-19 23:56] LABS: ACTIVATED PTT 30.8 SECONDS (25.2-36.5); CREATININE 0.9 mg/dL (0.55-1.3)
[2022-10-19 23:58] LABS: BILIRUBIN,TOTAL 1.2 mg/dL (0.2-1); TOT PROT 7.2 g/dl (6.4-8.2)
[2022-10-20 00:02] LABS: N-TERMINAL BNP 88.1 pg/ml (5-450)
[2022-10-20 02:13] LABS: URINE APPEARANCE CLEAR; URINE BILIRUBIN NEGATIVE (NEGATIVE); URINE COLOR YELLOW; URINE GLUCOSE (UA) NEGATIVE (NEGATIVE); URINE KETONE NEGATIVE (NEGATIVE); URINE LEUK ESTERASE TRACE (NEGATIVE); URINE NITRITE NEGATIVE (NEGATIVE); URINE PROTEIN NEGATIVE (NEGATIVE); URINE UROBILINOGEN 0.2 mg/dL (0.2-1.0)
[2022-10-20] MEDS ORDERED: ONDANSETRON 4 MG/2 ML VIAL IVPUSH PRN (02:41)
[2022-10-20] MEDS ORDERED: DOCUSATE SODIUM 100 MG CAPSULE (FP) PO PRN (02:41)
[2022-10-20] MEDS: SODIUM CHLORIDE 0.45% 1,000 ML IV SCH ×2 (03:53→17:43)
[2022-10-20] MEDS ORDERED: ACETAMINOPHEN 1000 MG/100 ML BAG IVPB PRN (05:30)
[2022-10-20 08:22] LABS: HYALINE CASTS 0.12 /uL (0-3.1); URINE BACTERIA 5.7 /uL (0-1359); URINE RBC 9.4 /uL (0-23.9)
[2022-10-20] MEDS: MULTIVITAMINS (DAILY MVI) TABLET (FP) PO SCH (12:42)
[2022-10-20] MEDS: FUROSEMIDE 40 MG TABLET (FP) PO SCH (12:42)
[2022-10-20] MEDS: CEFTRIAXONE 1 GM in DEXTROSE 5%-WATER - 50 ML IVPB SCH (12:42)
[2022-10-20] MEDS: ASPIRIN COATED 81 MG TABLET.EC PO SCH (12:42)
[2022-10-20] MEDS: VALSARTAN 160 MG TABLET PO SCH (12:42)
[2022-10-20] MEDS: ASCORBIC ACID 500 MG TABLET (FP) PO SCH (12:43)
[2022-10-20] MEDS ORDERED: MULTIVITAMINS (DAILY MVI) TABLET (FP) ONE (12:46)
[2022-10-20] MEDS ORDERED: ASCORBIC ACID 500 MG TABLET (FP) ONE (12:46)
[2022-10-20] MEDS ORDERED: ASPIRIN COATED 81 MG TABLET.EC ONE (12:46)
[2022-10-20] MEDS ORDERED: CEFTRIAXONE 1 GM/50 ML BAG ONE (12:47)
[2022-10-20] MEDS ORDERED: HEPARIN NA (PORCINE) 5,000 UNITS/ML 1ML VIAL ONE (12:47)
[2022-10-20] MEDS ORDERED: FUROSEMIDE 20 MG TABLET (FP) ONE (12:47)
[2022-10-20] MEDS: HEPARIN NA (PORCINE) 5,000 UNITS/ML 1ML VIAL SQ SCH ×2 (13:17→21:35)
[2022-10-20 13:21] VITALS: RESP 18
[2022-10-20] MEDS: FAMOTIDINE 20 MG TABLET PO SCH (14:47)
[2022-10-20] MEDS ORDERED: FAMOTIDINE 20 MG TABLET ONE (14:49)
[2022-10-20] MEDS ORDERED: ATORVASTATIN CA 20 MG TABLET (FP) PO SCH (22:00)
[2022-10-21] MEDS ORDERED: ACETAMINOPHEN 325 MG TABLET (FP) PO PRN (05:30)
[2022-10-21] MEDS: SODIUM CHLORIDE 0.45% 1,000 ML IV SCH (05:44)
[2022-10-21] MEDS: HEPARIN NA (PORCINE) 5,000 UNITS/ML 1ML VIAL SQ SCH (05:44)
[2022-10-21 07:17] LABS: BASO % 0.6 % (0-2.0); EOS % 3.2 % (0-4.5); HEMATOCRIT 39.4 % (35.4-49); HEMOGLOBIN 13.3 GM/dL (11.7-16.9); LYMPH % 21.3 % (8-40); MCH 31.7 pg (25.7-33.7); MCHC 33.7 g/dl (32.0-35.9); MEAN PLT VOLUME 8.6 fl (7.5-11.1); MONO % 7.1 % (3.8-10.2); NEUT % 67.8 % (42.8-82.8); PLATELET COUNT 226 10^3/uL (134-434); RBC 4.19 M/mm3 (4.00-5.60); RDW 14.8 % (11.9-15.9); WHITE BLOOD COUNT 8.2 K/mm3 (4.0-10.0)
[2022-10-21 07:36] LABS: CALCIUM 8.4 mg/dL (8.5-10.1)
[2022-10-21 07:37] LABS: BLOOD UREA NITROGEN 11.5 mg/dL (7-18)
[2022-10-21 07:40] LABS: CREATININE 0.9 mg/dL (0.55-1.3); PHOSPHOROUS 3.6 mg/dL (2.5-4.9)
[2022-10-21 07:42] LABS: TOT PROT 5.6 g/dl (6.4-8.2)
[2022-10-21] MEDS: CEFTRIAXONE 1 GM in DEXTROSE 5%-WATER - 50 ML IVPB SCH (10:07)
[2022-10-21] MEDS: VALSARTAN 160 MG TABLET PO SCH (10:08)
[2022-10-21] MEDS: ASPIRIN COATED 81 MG TABLET.EC PO SCH (10:08)
[2022-10-21] MEDS: FUROSEMIDE 40 MG TABLET (FP) PO SCH (10:08)
[2022-10-21] MEDS: FAMOTIDINE 20 MG TABLET PO SCH (10:08)
[2022-10-21] MEDS: ASCORBIC ACID 500 MG TABLET (FP) PO SCH (10:08)
[2022-10-21] MEDS: MULTIVITAMINS (DAILY MVI) TABLET (FP) PO SCH (10:08)
[2022-10-21 11:16] VITALS: BP 162/81; PULSE 64; TEMP 97.7
== END 2022-10-21 13:34 | disposition home or self-care (01) ==
LOC: JER 20:51 → JERBED 10-20 01:20 → J4W 10-20 19:50
PROVIDERS: ADMIT Internal Medicine; ATTEND Internal Medicine
PROC: 3E033NZ Introduction of Analgesics, Hypnotics, Sedatives into Peripheral Vein, Percutaneous Approach (ICD-10-PCS; principal; 2022-10-20)
PROC: 3E03329 Introduction of Other Anti-infective into Peripheral Vein, Percutaneous Approach (ICD-10-PCS; 2022-10-20)
PROC: 3E023GC Introduction of Other Therapeutic Substance into Muscle, Percutaneous Approach (ICD-10-PCS; 2022-10-20)
PROC: 3E0337Z Introduction of Electrolytic and Water Balance Substance into Peripheral Vein, Percutaneous Approach (ICD-10-PCS; 2022-10-20)
DX: R10.13 Epigastric pain (principal); R10.30 Lower abdominal pain, unspecified; K46.9 Unspecified abdominal hernia without obstruction or gangrene; D72.825 Bandemia; I25.2 Old myocardial infarction; Z95.5 Presence of coronary angioplasty implant and graft; E78.5 Hyperlipidemia, unspecified; K76.0 Fatty (change of) liver, not elsewhere classified; Z87.891 Personal history of nicotine dependence; R10.11 Right upper quadrant pain
CPT/HCPCS: 0241U-QW; 36415; 71045-TC-FY; 74177-TC; 80048; 80053; 81003; 82550; 83605; 83690; 83735; 83880; 84100; 84484; 85025; 85610; 85730; 87040; 87086; 93005; 93010; 96361; 96365; 96367; 96372; 96375; 99285-25; G0378; J1644; Q9967

== ENCOUNTER 2022-12-18 17:06 | Inpatient (IN) | payer OTHER, MEDICARE ==
[2022-12-18 17:21] VITALS: BMI 40.3
[2022-12-18] MEDS ORDERED: morphine CARPU-JECT 4 MG/1 ML DISP.SYRIN IVPUSH ONE (17:38)
[2022-12-18] MEDS ORDERED: ONDANSETRON 4 MG/2 ML VIAL IVPUSH ONE (17:39)
[2022-12-18] MEDS ORDERED: morphine SULFATE 4 MG/ML VIAL ONE (17:50)
[2022-12-18] MEDS ORDERED: ONDANSETRON 4 MG/2 ML VIAL ONE ×2 (17:50→23:22)
[2022-12-18 18:12] LABS: BASO % 0.6 % (0-2.0); EOS % 0.7 % (0-4.5); HEMATOCRIT 47.1 % (35.4-49); HEMOGLOBIN 15.8 GM/dL (11.7-16.9); LYMPH % 18.2 % (8-40); MCH 31.6 pg (25.7-33.7); MCHC 33.7 g/dl (32.0-35.9); MEAN CELL VOLUME 93.8 fl (80-96); MEAN PLT VOLUME 8.6 fl (7.5-11.1); MONO % 4.7 % (3.8-10.2); NEUT % 75.8 % (42.8-82.8); PLATELET COUNT 287 10^3/uL (134-434); RBC 5.02 M/mm3 (4.00-5.60); RDW 14.1 % (11.9-15.9); WHITE BLOOD COUNT 11.4 K/mm3 (4.0-10.0)
[2022-12-18] MEDS ORDERED: morphine CARPU-JECT 2 MG/1 ML DISP.SYRIN IVPUSH ONE (18:19)
[2022-12-18 18:25] LABS: INR 1.14 (0.83-1.09); PROTHROMBIN TIME (PATIENT) 13.1 SEC (9.7-13.0)
[2022-12-18 18:27] LABS: ACTIVATED PTT 29.2 SECONDS (25.2-36.5)
[2022-12-18 18:29] LABS: LACTIC ACID 3.5 mmol/L (0.4-2.0)
[2022-12-18 18:37] LABS: CALCIUM 9.7 mg/dL (8.5-10.1)
[2022-12-18 18:38] LABS: BLOOD UREA NITROGEN 14.5 mg/dL (7-18); MAGNESIUM 2.1 mg/dL (1.8-2.4)
[2022-12-18 18:41] LABS: CREATININE 1.1 mg/dL (0.55-1.3)
[2022-12-18 18:43] LABS: TOT PROT 7.1 g/dl (6.4-8.2)
[2022-12-18] MEDS ORDERED: SODIUM CHLORIDE 0.9% 500 ML INFUS.BAG IV ONE (19:15)
[2022-12-18] MEDS ORDERED: PIPERACILLIN/TAZOB 4.5 GM 4.5 GM in DEXTROSE 5%-WATER 100 ML IVPB ONE (19:21)
[2022-12-18] MEDS ORDERED: MIDAZOLAM HCL 2 MG/2 ML SINGLE DOSE VIAL IVPUSH ONE ×2 (19:23→20:49)
[2022-12-18] MEDS ORDERED: PIPERACILLIN/TAZOB 4.5 GM 4.5 GM/100 ML BAG IVPB ONE (19:35)
[2022-12-18] MEDS ORDERED: MIDAZOLAM HCL 2 MG/2 ML SINGLE DOSE VIAL ONE (19:35)
[2022-12-18 20:54] LABS: URINE APPEARANCE CLEAR; URINE BILIRUBIN NEGATIVE (NEGATIVE); URINE COLOR YELLOW; URINE GLUCOSE (UA) NEGATIVE (NEGATIVE); URINE KETONE 15 mg/dl (NEGATIVE); URINE LEUK ESTERASE TRACE (NEGATIVE); URINE NITRITE NEGATIVE (NEGATIVE); URINE PROTEIN TRACE (NEGATIVE); URINE UROBILINOGEN 0.2 mg/dL (0.2-1.0)
[2022-12-18 20:55] LABS: EPI CELLS 8.1 /uL (0-25.1); HYALINE CASTS 1.5 /uL (0-3.1); URINE BACTERIA 8.5 /uL (0-1359); URINE RBC 22.1 /uL (0-23.9); URINE WBC 99.8 /uL (0-25.8)
[2022-12-18] MEDS ORDERED: PROPOFOL 20 ML ONE (22:07)
[2022-12-18] MEDS ORDERED: SUCCINYLCHOLINE CHLORIDE 200 MG/10 ML SYRINGE ONE (22:07)
[2022-12-18] MEDS ORDERED: LIDOCAINE HCL 2% 100 MG/5 ML DISP.SYRIN ONE (22:08)
[2022-12-18] MEDS ORDERED: DEXTROSE 5%-0.45% SALINE 1,000 ML IV SCH (22:15)
[2022-12-18] MEDS ORDERED: oxyCODONE HCL 5 MG TABLET PO PRN ×2 (22:20)
[2022-12-18] MEDS ORDERED: ROCURONIUM BROMIDE 50 MG/5 ML SYRINGE ONE (22:29)
[2022-12-18] MEDS ORDERED: LACTATED RINGERS SOLUTION 1,000 ML IV SCH (22:30)
[2022-12-18] MEDS ORDERED: ePHEDrine SULFATE 50 MG/1 ML AMPULE ONE (22:59)
[2022-12-18] MEDS ORDERED: HYDROmorphone HCl 2 MG/ML VIAL ONE (23:20)
[2022-12-18] MEDS ORDERED: DEXAMETHASONE SOD PHOSPHATE 4 MG/1 ML VIAL ONE (23:22)
[2022-12-18] MEDS ORDERED: DESFLURANE GAS 240 ML BOTTLE IH ONE (23:22)
[2022-12-18] MEDS ORDERED: SUGAMMADEX SODIUM 200 MG/2 ML VIAL ONE (23:58)
[2022-12-19] MEDS ORDERED: ACETAMINOPHEN INJECTION 100 ML IVPB ONE (00:43)
[2022-12-19] MEDS ORDERED: oxyCODONE HCL 5 MG TABLET PO PRN (00:46)
[2022-12-19] MEDS: ACETAMINOPHEN 1000 MG/100 ML BAG IVPB SCH ×3 (00:47→17:13)
[2022-12-19] MEDS: PIPERACILLIN/TAZOB 4.5 GM 4.5 GM in DEXTROSE 5%-WATER 100 ML IVPB SCH ×3 (04:29→16:11)
[2022-12-19] MEDS ORDERED: IBUPROFEN 600 MG TABLET (FP) PO PRN (08:00)
[2022-12-19 09:41] LABS: HEMATOCRIT 41.8 % (35.4-49); HEMOGLOBIN 14.2 GM/dL (11.7-16.9); MCHC 33.9 g/dl (32.0-35.9); MEAN CELL VOLUME 94.3 fl (80-96); MEAN PLT VOLUME 8.3 fl (7.5-11.1); PLATELET COUNT 230 10^3/uL (134-434); RBC 4.44 M/mm3 (4.00-5.60); RDW 14.1 % (11.9-15.9); WHITE BLOOD COUNT 13.2 K/mm3 (4.0-10.0)
[2022-12-19 10:19] LABS: ANISOCYTOSIS 0; HELMET CELLS 0; HOWELL-JOLLY BODIES 0; MACROCYTOSIS 0; OVALOCYTE 0; ROULEAU 0; SICKELED CELLS 0; TARGET CELLS 0; TEAR DROP CELLS 0; TOXIC GRANULATION 0
[2022-12-19 10:25] LABS: ALBUMIN 3.2 g/dl (3.4-5.0)
[2022-12-19 10:26] LABS: BLOOD UREA NITROGEN 14.4 mg/dL (7-18)
[2022-12-19] MEDS: LACTATED RINGERS SOLUTION 1,000 ML IV SCH ×2 (10:29→23:33)
[2022-12-19] MEDS: oxyCODONE HCL 5 MG TABLET PO PRN ×2 (12:07→21:24)
[2022-12-19] MEDS ORDERED: ONDANSETRON 4 MG/2 ML VIAL IVPUSH PRN (14:47)
[2022-12-19] MEDS: ATORVASTATIN CA 20 MG TABLET (FP) PO SCH (21:14)
[2022-12-20] MEDS: LACTATED RINGERS SOLUTION 1,000 ML IV SCH ×2 (01:37→10:49)
[2022-12-20] MEDS: ACETAMINOPHEN 1000 MG/100 ML BAG IVPB SCH (01:39)
[2022-12-20] MEDS: PIPERACILLIN/TAZOB 4.5 GM 4.5 GM in DEXTROSE 5%-WATER 100 ML IVPB SCH ×3 (02:55→17:07)
[2022-12-20] MEDS: MULTIVITAMINS THER W-MINERALS COMBO TABLET (FP) PO SCH (09:20)
[2022-12-20] MEDS: VALSARTAN 160 MG TABLET PO SCH (09:20)
[2022-12-20] MEDS: FUROSEMIDE 40 MG TABLET (FP) PO SCH (09:20)
[2022-12-20] MEDS: FAMOTIDINE 20 MG TABLET PO SCH (09:21)
[2022-12-20 10:25] LABS: BASO % 0.3 % (0-2.0); HEMATOCRIT 40.6 % (35.4-49); HEMOGLOBIN 13.5 GM/dL (11.7-16.9); LYMPH % 12.1 % (8-40); MCH 31.4 pg (25.7-33.7); MCHC 33.3 g/dl (32.0-35.9); MEAN CELL VOLUME 94.3 fl (80-96); MEAN PLT VOLUME 8.5 fl (7.5-11.1); MONO % 5.5 % (3.8-10.2); NEUT % 81.1 % (42.8-82.8); PLATELET COUNT 217 10^3/uL (134-434); RBC 4.31 M/mm3 (4.00-5.60); RDW 14.4 % (11.9-15.9); WHITE BLOOD COUNT 12.7 K/mm3 (4.0-10.0)
[2022-12-20 10:46] LABS: CALCIUM 8.3 mg/dL (8.5-10.1)
[2022-12-20 10:47] LABS: ALBUMIN 3.1 g/dl (3.4-5.0); BLOOD UREA NITROGEN 12.7 mg/dL (7-18)
[2022-12-20 10:51] LABS: BILIRUBIN,TOTAL 1.3 mg/dL (0.2-1); TOT PROT 5.6 g/dl (6.4-8.2)
[2022-12-20] MEDS: POLYETHYLENE GLYCOL (HEALTHYLAX) 3350 17 GM PACKET PO SCH (12:23)
[2022-12-20] MEDS: oxyCODONE HCL 5 MG TABLET PO PRN (17:13)
[2022-12-20] MEDS: ATORVASTATIN CA 20 MG TABLET (FP) PO SCH (21:28)
[2022-12-21] MEDS: PIPERACILLIN/TAZOB 4.5 GM 4.5 GM in DEXTROSE 5%-WATER 100 ML IVPB SCH ×3 (02:01→17:22)
[2022-12-21 09:45] VITALS: RESP 15
[2022-12-21] MEDS: VALSARTAN 160 MG TABLET PO SCH (10:51)
[2022-12-21] MEDS: FUROSEMIDE 40 MG TABLET (FP) PO SCH (10:51)
[2022-12-21] MEDS: POLYETHYLENE GLYCOL (HEALTHYLAX) 3350 17 GM PACKET PO SCH (10:51)
[2022-12-21] MEDS: MULTIVITAMINS THER W-MINERALS COMBO TABLET (FP) PO SCH (10:51)
[2022-12-21] MEDS: FAMOTIDINE 20 MG TABLET PO SCH (10:51)
[2022-12-21] MEDS ORDERED: FINASTERIDE 5 MG TABLET (FP) PO SCH (11:45)
[2022-12-21 14:37] VITALS: BP 148/87; PULSE 63; TEMP 97.9
== END 2022-12-21 20:57 | disposition home or self-care (01) | DRG 336 ==
LOC: JER 17:06 → JERBED 21:36 → J6S 12-19 01:30
PROVIDERS: ADMIT Internal Medicine; ATTEND Internal Medicine
PROC: 0WUF0JZ Supplement Abdominal Wall with Synthetic Substitute, Open Approach (ICD-10-PCS; principal; 2022-12-19)
PROC: 0DNW0ZZ Release Peritoneum, Open Approach (ICD-10-PCS; 2022-12-19)
DX: K43.0 Incisional hernia with obstruction, without gangrene (principal); R18.8 Other ascites; Z68.41 Body mass index [BMI] 40.0-44.9, adult; I10 Essential (primary) hypertension; E78.5 Hyperlipidemia, unspecified; K66.0 Peritoneal adhesions (postprocedural) (postinfection); E66.01 Morbid (severe) obesity due to excess calories; I25.10 Atherosclerotic heart disease of native coronary artery without angina pectoris; Z95.5 Presence of coronary angioplasty implant and graft
CPT/HCPCS: 0241U-QW; 36415; 71045-TC-FY; 74177-TC; 80053; 81003; 83605; 83690; 83735; 84484; 85025; 85610; 85730; 86850; 86900; 86901; 87086; 88302-TC; 93005; 93010; 94010; 94760; 97116-GP; 97162-GP; 99285-25; C1781; Q9967

== ENCOUNTER 2022-12-28 05:54 | Inpatient (IN) | payer OTHER, MEDICARE ==
[2022-12-28 06:50] LABS: BASO % 0.7 % (0-2.0); EOS % 1.3 % (0-4.5); HEMATOCRIT 40.8 % (35.4-49); HEMOGLOBIN 13.8 GM/dL (11.7-16.9); LYMPH % 12.1 % (8-40); MCH 31.3 pg (25.7-33.7); MCHC 33.8 g/dl (32.0-35.9); MEAN CELL VOLUME 92.7 fl (80-96); MEAN PLT VOLUME 8.2 fl (7.5-11.1); MONO % 4.3 % (3.8-10.2); NEUT % 81.6 % (42.8-82.8); PLATELET COUNT 275 10^3/uL (134-434); RBC 4.41 M/mm3 (4.00-5.60); RDW 13.8 % (11.9-15.9); WHITE BLOOD COUNT 13.2 K/mm3 (4.0-10.0)
[2022-12-28 06:59] LABS: INR 1.15 (0.83-1.09); PROTHROMBIN TIME (PATIENT) 13.3 SEC (9.7-13.0)
[2022-12-28 07:11] LABS: ALBUMIN 3.2 g/dl (3.4-5.0); CALCIUM 8.9 mg/dL (8.5-10.1)
[2022-12-28 07:12] LABS: BLOOD UREA NITROGEN 13.8 mg/dL (7-18)
[2022-12-28] MEDS ORDERED: LACTATED RINGERS SOLUTION 1,000 ML/1,000 ML INFUS.BAG IV STA (07:13)
[2022-12-28 07:14] LABS: CREATININE 0.8 mg/dL (0.55-1.3)
[2022-12-28 07:16] LABS: BILIRUBIN,TOTAL 0.8 mg/dL (0.2-1); TOT PROT 6.3 g/dl (6.4-8.2)
[2022-12-28] MEDS ORDERED: PIPERACILLIN/TAZOB 3.375 GM 3.375 GM in DEXTROSE 5%-WATER - 50 ML IVPB ONE (09:34)
[2022-12-28] MEDS ORDERED: PIPERACILLIN/TAZOB 3.375 GM 3.375 GM/50 ML BAG IVPB ONE ×2 (09:42→09:44)
[2022-12-28] MEDS ORDERED: ACETAMINOPHEN 1000 MG/100 ML BAG IVPB ONE (11:29)
[2022-12-28 11:32] LABS: URINE APPEARANCE CLEAR; URINE BILIRUBIN NEGATIVE (NEGATIVE); URINE COLOR YELLOW; URINE GLUCOSE (UA) NEGATIVE (NEGATIVE); URINE KETONE NEGATIVE (NEGATIVE); URINE PROTEIN NEGATIVE (NEGATIVE)
[2022-12-28 11:33] LABS: URINE LEUK ESTERASE TRACE (NEGATIVE); URINE NITRITE NEGATIVE (NEGATIVE); URINE UROBILINOGEN 0.2 mg/dL (0.2-1.0)
[2022-12-28] MEDS ORDERED: ACETAMINOPHEN INJECTION 100 ML IVPB ONE (11:33)
[2022-12-28] MEDS ORDERED: morphine CARPU-JECT 4 MG/1 ML DISP.SYRIN IVPUSH ONE (15:48)
[2022-12-28] MEDS ORDERED: morphine SULFATE 4 MG/ML VIAL ONE (15:51)
[2022-12-28] MEDS: DEXTROSE 5%-LACTATED RINGERS 1,000 ML IV SCH (16:02)
[2022-12-28] MEDS ORDERED: VANCOMYCIN/WATER 1250 MG 1,250 MG/250 ML BAG IVPB ONE (17:25)
[2022-12-28] MEDS: VANCOMYCIN/WATER 1250 MG 1,250 MG/250 ML BAG IVPB SCH (17:29)
[2022-12-28] MEDS ORDERED: PIPERACILLIN/TAZOB 4.5 GM 4.5 GM/100 ML BAG IVPB ONE (17:52)
[2022-12-28] MEDS: PIPERACILLIN/TAZOB 4.5 GM 4.5 GM in DEXTROSE 5%-WATER 100 ML IVPB SCH (18:33)
[2022-12-28] MEDS: ATORVASTATIN CA 20 MG TABLET (FP) PO SCH (22:51)
[2022-12-29] MEDS: PIPERACILLIN/TAZOB 4.5 GM 4.5 GM in DEXTROSE 5%-WATER 100 ML IVPB SCH ×3 (02:14→20:21)
[2022-12-29] MEDS: DEXTROSE 5%-LACTATED RINGERS 1,000 ML IV SCH ×3 (02:16→20:27)
[2022-12-29 03:12] VITALS: BMI 39.8
[2022-12-29] MEDS: VANCOMYCIN/WATER 1250 MG 1,250 MG/250 ML BAG IVPB SCH ×2 (04:37→18:50)
[2022-12-29 09:23] LABS: BASO % 0.6 % (0-2.0); EOS % 2.8 % (0-4.5); HEMATOCRIT 36.2 % (35.4-49); HEMOGLOBIN 12.4 GM/dL (11.7-16.9); LYMPH % 15.6 % (8-40); MCHC 34.4 g/dl (32.0-35.9); MEAN CELL VOLUME 93.1 fl (80-96); MEAN PLT VOLUME 7.9 fl (7.5-11.1); MONO % 5.8 % (3.8-10.2); NEUT % 75.2 % (42.8-82.8); PLATELET COUNT 262 10^3/uL (134-434); RBC 3.89 M/mm3 (4.00-5.60); RDW 13.9 % (11.9-15.9); WHITE BLOOD COUNT 10.1 K/mm3 (4.0-10.0)
[2022-12-29 09:53] LABS: ALBUMIN 2.8 g/dl (3.4-5.0)
[2022-12-29 09:56] LABS: CALCIUM 8.3 mg/dL (8.5-10.1); CREATININE 0.8 mg/dL (0.55-1.3)
[2022-12-29 09:57] LABS: BILIRUBIN,TOTAL 1.1 mg/dL (0.2-1); TOT PROT 5.5 g/dl (6.4-8.2)
[2022-12-29] MEDS: FUROSEMIDE 40 MG TABLET (FP) PO SCH (10:13)
[2022-12-29] MEDS: VALSARTAN 160 MG TABLET PO SCH (10:13)
[2022-12-29] MEDS: FINASTERIDE 5 MG TABLET (FP) PO SCH (10:13)
[2022-12-29] MEDS: ATORVASTATIN CA 20 MG TABLET (FP) PO SCH (21:55)
[2022-12-30] MEDS: PIPERACILLIN/TAZOB 4.5 GM 4.5 GM in DEXTROSE 5%-WATER 100 ML IVPB SCH ×3 (02:35→17:33)
[2022-12-30] MEDS: VANCOMYCIN/WATER 1250 MG 1,250 MG/250 ML BAG IVPB SCH ×2 (03:41→18:04)
[2022-12-30] MEDS ORDERED: BUPIVACAINE HCL/PF 0.5% (5MG/ML) 10 ML VIAL ONE ×2 (07:14→07:47)
[2022-12-30] MEDS ORDERED: LIDOCAINE HCL 1%, 10 MG/ML (20ML VIAL) ONE (07:14)
[2022-12-30] MEDS: VALSARTAN 160 MG TABLET PO SCH ×2 (07:18→11:31)
[2022-12-30] MEDS ORDERED: SUCCINYLCHOLINE CHLORIDE 200 MG/10 ML SYRINGE ONE (07:35)
[2022-12-30] MEDS ORDERED: ONDANSETRON 4 MG/2 ML VIAL ONE (07:35)
[2022-12-30] MEDS ORDERED: DEXAMETHASONE SOD PHOSPHATE 4 MG/1 ML VIAL ONE (07:35)
[2022-12-30] MEDS ORDERED: PROPOFOL 20 ML ONE (07:35)
[2022-12-30] MEDS ORDERED: LIDOCAINE HCL/PF 2% SDV 5ML VIAL ONE (07:35)
[2022-12-30] MEDS ORDERED: MIDAZOLAM HCL 2 MG/2 ML SINGLE DOSE VIAL ONE (07:35)
[2022-12-30] MEDS ORDERED: ONDANSETRON 4 MG/2 ML VIAL IVPUSH PRN (08:42)
[2022-12-30] MEDS ORDERED: ROCURONIUM BROMIDE 50 MG/5 ML SYRINGE ONE ×2 (08:46→10:27)
[2022-12-30] MEDS ORDERED: HYDROmorphone HCl 2 MG/ML VIAL ONE (09:16)
[2022-12-30] MEDS ORDERED: ePHEDrine SULFATE 50 MG/1 ML AMPULE ONE (09:35)
[2022-12-30] MEDS: FINASTERIDE 5 MG TABLET (FP) PO SCH (11:32)
[2022-12-30] MEDS: FUROSEMIDE 40 MG TABLET (FP) PO SCH (11:32)
[2022-12-30] MEDS ORDERED: GLYCOPYRROLATE 0.2 MG/1 ML VIAL ONE (11:38)
[2022-12-30] MEDS ORDERED: NEOSTIGMINE METHYLSULFATE 0.5 MG/1 ML - 10 ML MDV ONE (11:38)
[2022-12-30] MEDS ORDERED: ACETAMINOPHEN INJECTION 100 ML IVPB ONE (11:46)
[2022-12-30] MEDS ORDERED: DEXTROSE 5%-LACTATED RINGERS 1,000 ML IV SCH (12:26)
[2022-12-30] MEDS ORDERED: oxyCODONE HCL 5 MG TABLET PO PRN (12:26)
[2022-12-30] MEDS: ONDANSETRON 4 MG/2 ML VIAL IVPUSH PRN (16:34)
[2022-12-30] MEDS: ACETAMINOPHEN 1000 MG/100 ML BAG IVPB SCH (20:13)
[2022-12-30] MEDS: ATORVASTATIN CA 20 MG TABLET (FP) PO SCH (21:15)
[2022-12-31] MEDS: PIPERACILLIN/TAZOB 4.5 GM 4.5 GM in DEXTROSE 5%-WATER 100 ML IVPB SCH ×3 (02:05→17:48)
[2022-12-31] MEDS: ACETAMINOPHEN 1000 MG/100 ML BAG IVPB SCH ×2 (04:07→12:07)
[2022-12-31] MEDS: VANCOMYCIN/WATER 1250 MG 1,250 MG/250 ML BAG IVPB SCH ×2 (04:08→16:18)
[2022-12-31] MEDS: oxyCODONE HCL 5 MG TABLET PO PRN (08:46)
[2022-12-31 08:53] LABS: BASO % 0.3 % (0-2.0); EOS % 1.3 % (0-4.5); HEMATOCRIT 35.8 % (35.4-49); HEMOGLOBIN 12.4 GM/dL (11.7-16.9); MCHC 34.6 g/dl (32.0-35.9); MEAN CELL VOLUME 92.4 fl (80-96); MEAN PLT VOLUME 7.9 fl (7.5-11.1); MONO % 7.9 % (3.8-10.2); NEUT % 78.5 % (42.8-82.8); PLATELET COUNT 260 10^3/uL (134-434); RBC 3.87 M/mm3 (4.00-5.60); WHITE BLOOD COUNT 13.3 K/mm3 (4.0-10.0)
[2022-12-31 09:11] LABS: CALCIUM 8.2 mg/dL (8.5-10.1)
[2022-12-31 09:12] LABS: ALBUMIN 2.4 g/dl (3.4-5.0)
[2022-12-31 09:17] LABS: BILIRUBIN,TOTAL 1.1 mg/dL (0.2-1)
[2022-12-31] MEDS: ENOXAPARIN NA (PORCINE) 40 MG/0.4 ML DISP.SYRIN SQ SCH (09:26)
[2022-12-31] MEDS: FUROSEMIDE 40 MG TABLET (FP) PO SCH (09:28)
[2022-12-31] MEDS: FINASTERIDE 5 MG TABLET (FP) PO SCH (09:28)
[2022-12-31] MEDS: VALSARTAN 160 MG TABLET PO SCH (09:29)
[2022-12-31] MEDS: DEXTROSE 5%-LACTATED RINGERS 1,000 ML IV SCH (14:23)
[2022-12-31] MEDS: guaiFENesin/CODEINE 5 ML UNIT-DOSE CUPS PO PRN ×2 (14:26→22:51)
[2022-12-31] MEDS: ONDANSETRON 4 MG/2 ML VIAL IVPUSH PRN (14:27)
[2022-12-31] MEDS: ATORVASTATIN CA 20 MG TABLET (FP) PO SCH (22:51)
[2023-01-01] MEDS: PIPERACILLIN/TAZOB 4.5 GM 4.5 GM in DEXTROSE 5%-WATER 100 ML IVPB SCH ×3 (02:16→19:33)
[2023-01-01 03:42] VITALS: RESP 20
[2023-01-01] MEDS: VANCOMYCIN/WATER 1250 MG 1,250 MG/250 ML BAG IVPB SCH ×2 (05:14→17:29)
[2023-01-01] MEDS: VALSARTAN 160 MG TABLET PO SCH (09:29)
[2023-01-01] MEDS: FUROSEMIDE 40 MG TABLET (FP) PO SCH (09:29)
[2023-01-01] MEDS: FINASTERIDE 5 MG TABLET (FP) PO SCH (09:29)
[2023-01-01] MEDS: ENOXAPARIN NA (PORCINE) 40 MG/0.4 ML DISP.SYRIN SQ SCH (09:29)
[2023-01-01] MEDS: DEXTROSE 5%-LACTATED RINGERS 1,000 ML IV SCH (09:37)
[2023-01-01] MEDS ORDERED: guaiFENesin 200 MG/10 ML 10 ML UNIT-DOSE CUPS PO PRN (14:55)
[2023-01-01] MEDS: oxyCODONE HCL 5 MG TABLET PO PRN (22:03)
[2023-01-01] MEDS: ATORVASTATIN CA 20 MG TABLET (FP) PO SCH (22:03)
[2023-01-01] MEDS ORDERED: FAMOTIDINE 20 MG/50 ML IVPB 20 MG/50 ML MG IVPB ONE (23:37)
[2023-01-02] MEDS: PIPERACILLIN/TAZOB 4.5 GM 4.5 GM in DEXTROSE 5%-WATER 100 ML IVPB SCH ×3 (02:26→17:27)
[2023-01-02] MEDS: VANCOMYCIN/WATER 1250 MG 1,250 MG/250 ML BAG IVPB SCH ×2 (04:11→17:25)
[2023-01-02 08:51] LABS: BASO % 0.5 % (0-2.0); EOS % 2.6 % (0-4.5); HEMATOCRIT 32.3 % (35.4-49); HEMOGLOBIN 11.4 GM/dL (11.7-16.9); LYMPH % 14.2 % (8-40); MCH 32.3 pg (25.7-33.7); MCHC 35.4 g/dl (32.0-35.9); MEAN CELL VOLUME 91.5 fl (80-96); MEAN PLT VOLUME 7.7 fl (7.5-11.1); MONO % 7.7 % (3.8-10.2); PLATELET COUNT 267 10^3/uL (134-434); RBC 3.53 M/mm3 (4.00-5.60); RDW 13.7 % (11.9-15.9); WHITE BLOOD COUNT 11.3 K/mm3 (4.0-10.0)
[2023-01-02 09:47] LABS: BLOOD UREA NITROGEN 11.4 mg/dL (7-18)
[2023-01-02 09:50] LABS: ALBUMIN 2.2 g/dl (3.4-5.0); CALCIUM 8.3 mg/dL (8.5-10.1)
[2023-01-02 09:52] LABS: CREATININE 0.8 mg/dL (0.55-1.3)
[2023-01-02 09:54] LABS: BILIRUBIN,TOTAL 1.1 mg/dL (0.2-1); TOT PROT 4.9 g/dl (6.4-8.2)
[2023-01-02] MEDS: ENOXAPARIN NA (PORCINE) 40 MG/0.4 ML DISP.SYRIN SQ SCH (10:09)
[2023-01-02] MEDS: FINASTERIDE 5 MG TABLET (FP) PO SCH (10:14)
[2023-01-02] MEDS: FUROSEMIDE 40 MG TABLET (FP) PO SCH (10:14)
[2023-01-02] MEDS: VALSARTAN 160 MG TABLET PO SCH (10:15)
[2023-01-02] MEDS: ATORVASTATIN CA 20 MG TABLET (FP) PO SCH (22:29)
[2023-01-03] MEDS: PIPERACILLIN/TAZOB 4.5 GM 4.5 GM in DEXTROSE 5%-WATER 100 ML IVPB SCH ×2 (01:49→09:49)
[2023-01-03] MEDS: VANCOMYCIN/WATER 1250 MG 1,250 MG/250 ML BAG IVPB SCH (04:06)
[2023-01-03] MEDS: VALSARTAN 160 MG TABLET PO SCH (09:46)
[2023-01-03] MEDS: FINASTERIDE 5 MG TABLET (FP) PO SCH (09:47)
[2023-01-03] MEDS: FUROSEMIDE 40 MG TABLET (FP) PO SCH (09:48)
[2023-01-03] MEDS: ENOXAPARIN NA (PORCINE) 40 MG/0.4 ML DISP.SYRIN SQ SCH (09:48)
[2023-01-03] MEDS ORDERED: MULTIVITAMINS THER W-MINERALS COMBO TABLET (FP) PO SCH (10:00)
[2023-01-03] MEDS ORDERED: ASCORBIC ACID 500 MG TABLET (FP) PO SCH (10:00)
[2023-01-03 10:54] VITALS: BP 124/76; PULSE 69; TEMP 98.8
[2023-01-03] MEDS ORDERED: ACETAMINOPHEN 325 MG TABLET (FP) PO PRN (13:10)
== END 2023-01-03 16:32 | disposition home or self-care (01) | DRG 336 ==
LOC: JER 05:54 → JERBED 10:12 → J8W 19:52
PROVIDERS: ADMIT Internal Medicine; ATTEND Internal Medicine
PROC: 0DNW0ZZ Release Peritoneum, Open Approach (ICD-10-PCS; 2022-12-30)
PROC: 0WUF0JZ Supplement Abdominal Wall with Synthetic Substitute, Open Approach (ICD-10-PCS; principal; 2022-12-30 08:00)
DX: K43.0 Incisional hernia with obstruction, without gangrene (principal); K91.872 Postprocedural seroma of a digestive system organ or structure following a digestive system procedure; Z68.41 Body mass index [BMI] 40.0-44.9, adult; T81.9XXA Unspecified complication of procedure, initial encounter; I10 Essential (primary) hypertension; E78.5 Hyperlipidemia, unspecified; E66.01 Morbid (severe) obesity due to excess calories; K66.0 Peritoneal adhesions (postprocedural) (postinfection); Y83.9 Surgical procedure, unspecified as the cause of abnormal reaction of the patient, or of later complication, without mention of misadventure at the time of the procedure
CPT/HCPCS: 36415; 71045-TC-FY; 74177-TC; 80053; 81003; 83690; 84484; 85025; 85610; 85730; 86850; 86900; 86901; 87040; 88300-TC; 93005; 93010; 94010; 94760; 97116-GP; 97161-GP; 99285-25; C1776; C1781; C9803-CS; G0480; U0003; U0005

== ENCOUNTER 2023-08-03 21:36 | Emergency (ER) | payer OTHER, MEDICARE ==
[2023-08-03 21:41] VITALS: TEMP 97.7; BMI 38.7
[2023-08-03] MEDS ORDERED: ACETAMINOPHEN 1000 MG/100 ML BAG IVPB ONE (22:05)
[2023-08-03] MEDS ORDERED: ACETAMINOPHEN INJECTION 100 ML IVPB ONE (22:34)
[2023-08-03 22:47] LABS: BASO % 0.6 % (0-2.0); EOS % 1.2 % (0-4.5); HEMATOCRIT 41.3 % (35.4-49); HEMOGLOBIN 14.4 GM/dL (11.7-16.9); LYMPH % 17.9 % (8-40); MCH 31.5 pg (25.7-33.7); MEAN CELL VOLUME 90.2 fl (80-96); MEAN PLT VOLUME 8.1 fl (7.5-11.1); NEUT % 74.3 % (42.8-82.8); PLATELET COUNT 255 10^3/uL (134-434); RBC 4.58 M/mm3 (4.00-5.60); RDW 14.6 % (11.9-15.9); WHITE BLOOD COUNT 11.2 K/mm3 (4.0-10.0)
[2023-08-03 22:57] LABS: INR 1.13 (0.83-1.09); PROTHROMBIN TIME (PATIENT) 13.1 SEC (9.7-13.0)
[2023-08-03 23:00] LABS: ACTIVATED PTT 31.3 SECONDS (25.2-36.5)
[2023-08-03 23:19] LABS: POTASSIUM 3.8 mmol/L (3.5-5.1)
[2023-08-03 23:21] LABS: ALBUMIN 3.6 g/dl (3.4-5.0); BLOOD UREA NITROGEN 16.2 mg/dL (7-18); CALCIUM 8.8 mg/dL (8.5-10.1)
[2023-08-03 23:25] LABS: CREATININE 1.1 mg/dL (0.55-1.3)
[2023-08-03 23:26] LABS: TOT PROT 6.7 g/dl (6.4-8.2)
[2023-08-03] MEDS ORDERED: LACTATED RINGERS SOLUTION 1000 ML INFUS.BAG IV ONE (23:51)
[2023-08-04 00:42] VITALS: BP 168/78; PULSE 61; RESP 16
[2023-08-04] MEDS ORDERED: AMOX TR/POT CLAV 875MG/125MG TABLETS (FP) PO ONE (01:24)
[2023-08-04] MEDS ORDERED: AMOX TR/POT CLAV 875MG/125MG TABLETS (FP) ONE (01:32)
== END 2023-08-04 01:47 | disposition home or self-care (01) ==
LOC: JER 21:36
PROC: 3E033NZ Introduction of Analgesics, Hypnotics, Sedatives into Peripheral Vein, Percutaneous Approach (ICD-10-PCS; principal; 2023-08-03)
DX: R10.9 Unspecified abdominal pain (principal); K57.92 Diverticulitis of intestine, part unspecified, without perforation or abscess without bleeding; K59.00 Constipation, unspecified
CPT/HCPCS: 36415; 74177-TC; 80053; 85025; 85610; 85730; 86850; 86900; 86901; 93005; 93010; 99285-25; Q9967

== ENCOUNTER 2024-10-21 09:22 | Emergency (ER) | payer OTHER, MEDICARE ==
[2024-10-21 09:53] VITALS: BP 169/95; PULSE 68; RESP 16; TEMP 97.7; BMI 37.1
[2024-10-21 11:25] LABS: PH,URINE 7.5 (5.0-8.0); URINE APPEARANCE Clear; URINE BILIRUBIN Negative (NEGATIVE); URINE COLOR Yellow; URINE GLUCOSE (UA) Negative (NEGATIVE); URINE KETONE Negative (NEGATIVE); URINE LEUK ESTERASE Trace (NEGATIVE); URINE NITRITE Negative (NEGATIVE); URINE PROTEIN Negative (NEGATIVE); URINE UROBILINOGEN 0.2 mg/dL (0.2-1.0)
[2024-10-21 11:31] LABS: EPI CELLS 5.8 /uL (0-25.1); HYALINE CASTS 0.27 /uL (0-3.1); URINE BACTERIA 5.6 /uL (0-1359); URINE RBC 4.6 /uL (0-23.9); URINE WBC 65.8 /uL (0-25.8)
== END 2024-10-21 12:26 | disposition home or self-care (01) ==
LOC: JER 09:22
DX: R68.83 Chills (without fever) (principal); R35.0 Frequency of micturition
CPT/HCPCS: 81003; 87086; 99283-25

== ENCOUNTER 2025-03-29 09:20 | Inpatient (IN) | payer OTHER, MEDICARE ==
[2025-03-29 09:34] VITALS: BMI 35.5
[2025-03-29] MEDS ORDERED: ACETAMINOPHEN INJECTION 100 ML ONE (09:56)
[2025-03-29] MEDS: ACETAMINOPHEN 1000 MG/100 ML BAG IVPB ONE (10:10)
[2025-03-29 10:25] LABS: ABSOLUTE IMMATURE GRANULOCYTES 0.06 x10^3/uL (0.0-0.031); BASOPHILS # 0.02 x10^3/uL (0.01-0.08); EOSINOPHIL % 0.1 % (0.8-7.0); EOSINOPHILS # 0.01 x10^3/uL (0.04-0.54); HEMATOCRIT 36.3 % (40.1-51.0); HEMOGLOBIN 12.3 g/dL (13.7-17.5); MCHC 33.9 g/dl (32.3-36.5); MEAN CELL VOLUME 94.8 fl (79.0-92.2); MEAN PLT VOLUME 10.6 fl (9.4-12.4); MONOCYTE # 0.93 x10^3/uL (0.30-0.82); MONOCYTE % 7.7 % (5.3-12.2); PLATELET COUNT 186 x10^3/uL (163-337); RDW 14.1 % (12.2-16.6)
[2025-03-29 10:33] LABS: INR 1.21 (0.83-1.09); PROTHROMBIN TIME (PATIENT) 13.3 SEC (9.7-13.0)
[2025-03-29 10:35] LABS: ACTIVATED PTT 27.8 SECONDS (25.2-36.5)
[2025-03-29 10:50] LABS: POTASSIUM 3.9 mmol/L (3.5-5.1)
[2025-03-29 10:52] LABS: CALCIUM 9.6 mg/dL (8.5-10.1)
[2025-03-29 10:54] LABS: ALBUMIN 3.4 g/dl (3.4-5.0)
[2025-03-29 10:56] LABS: CREATININE 1.4 mg/dL (0.55-1.3)
[2025-03-29 10:57] LABS: BILIRUBIN,TOTAL 1.7 mg/dL (0.2-1); TOT PROT 6.5 g/dl (6.4-8.2)
[2025-03-29] MEDS: SODIUM CHLORIDE 0.9% 500 ML INFUS.BAG IV ONE ×2 (11:16→17:00)
[2025-03-29] MEDS ORDERED: MORPHINE SULFATE 2 MG/ML SYRINGE ONE (12:09)
[2025-03-29] MEDS ORDERED: ONDANSETRON 4 MG/2 ML VIAL ONE (12:09)
[2025-03-29] MEDS: ONDANSETRON 4 MG/2 ML VIAL IVPUSH ONE (12:10)
[2025-03-29] MEDS: morphine SULFATE 4 MG/ML VIAL IVPUSH ONE (12:25)
[2025-03-29] MEDS ORDERED: KETOROLAC TROMETHAMINE 15 MG/ML VIAL ONE (16:50)
[2025-03-29] MEDS: KETOROLAC TROMETHAMINE 15 MG/ML VIAL IVPUSH ONE (16:55)
[2025-03-29 17:27] LABS: EPI CELLS 6 /uL (0-25.1); HYALINE CASTS 1 /uL (0-3.1); PH,URINE 5.5 (5.0-8.0); URINE APPEARANCE CLEAR; URINE BACTERIA 2 /uL (0-1359); URINE BILIRUBIN NEGATIVE (NEGATIVE); URINE COLOR YELLOW; URINE GLUCOSE (UA) NEGATIVE (NEGATIVE); URINE KETONE TRACE (NEGATIVE); URINE LEUK ESTERASE NEGATIVE (NEGATIVE); URINE NITRITE NEGATIVE (NEGATIVE); URINE PROTEIN 1+ (NEGATIVE); URINE RBC 29 /uL (0-23.9); URINE UROBILINOGEN 0.2 mg/dL (0.2-1.0); URINE WBC 12 /uL (0-25.8)
[2025-03-29] MEDS ORDERED: ACETAMINOPHEN 325 MG TABLET (FP) PO PRN (19:38)
[2025-03-29] MEDS ORDERED: MORPHINE SULFATE 2 MG/ML SYRINGE IVPUSH PRN (20:52)
[2025-03-29] MEDS ORDERED: CEFTRIAXONE 1 G/50 ML PREMIX 50 ML IVPB ONE (21:20)
[2025-03-29] MEDS: CEFTRIAXONE 1 G/50 ML PREMIX 50 ML IVPB SCH (21:24)
[2025-03-29] MEDS ORDERED: INSULIN ASPART SLIDING SCALE (NOVOLOG) 1 VIAL SQ SCH (22:00)
[2025-03-29] MEDS: INSULIN ASPART SLIDING SCALE (NOVOLOG) 1 VIAL SQ SCH (22:02)
[2025-03-29] MEDS ORDERED: GABAPENTIN 300 MG CAPSULE ONE (22:03)
[2025-03-29] MEDS ORDERED: HEPARIN NA (PORCINE) 5,000 UNITS/ML 1ML VIAL ONE (22:03)
[2025-03-29] MEDS ORDERED: ATORVASTATIN CA 20 MG TABLET (FP) ONE (22:03)
[2025-03-29] MEDS: ATORVASTATIN CA 20 MG TABLET (FP) PO SCH (22:14)
[2025-03-29] MEDS: HEPARIN NA (PORCINE) 5,000 UNITS/ML 1ML VIAL SQ SCH (22:14)
[2025-03-29] MEDS: GABAPENTIN 300 MG CAPSULE PO SCH (22:14)
[2025-03-30] MEDS ORDERED: TAMSULOSIN HCL 0.4 MG CAP PO SCH (08:30)
[2025-03-30 08:59] LABS: HEMATOCRIT 30.2 % (40.1-51.0); HEMOGLOBIN 10.3 g/dL (13.7-17.5); MCHC 34.1 g/dl (32.3-36.5); MEAN CELL VOLUME 95.3 fl (79.0-92.2); MEAN PLT VOLUME 10.9 fl (9.4-12.4); PLATELET COUNT 159 x10^3/uL (163-337); RDW 14.4 % (12.2-16.6)
[2025-03-30 09:05] LABS: INR 1.37 (0.83-1.09); PROTHROMBIN TIME (PATIENT) 14.9 SEC (9.7-13.0)
[2025-03-30 09:19] LABS: POTASSIUM 3.7 mmol/L (3.5-5.1)
[2025-03-30 09:32] LABS: CALCIUM 8.8 mg/dL (8.5-10.1)
[2025-03-30 09:34] LABS: ALBUMIN 2.6 g/dl (3.4-5.0); BILIRUBIN,DIRECT 0.4 mg/dL (0.0-0.2)
[2025-03-30 09:35] LABS: BILIRUBIN,TOTAL 1.6 mg/dL (0.2-1); CREATININE 1.5 mg/dL (0.55-1.3); TOT PROT 5.2 g/dl (6.4-8.2)
[2025-03-30] MEDS: TAMSULOSIN HCL 0.4 MG CAP PO SCH (10:35)
[2025-03-30] MEDS: amLODIPine BESYLATE 5 MG TABLET (FP) PO SCH (10:36)
[2025-03-30] MEDS: SODIUM CHLORIDE 1,000 ML IV SCH (10:56)
[2025-03-30] MEDS: ACETAMINOPHEN 325 MG TABLET (FP) PO PRN (16:04)
[2025-03-31] MEDS: POLYETHYLENE GLYCOL (HEALTHYLAX) 3350 17 GM PACKET PO SCH (13:27)
[2025-04-01] MEDS ORDERED: PROPOFOL 20 ML ONE ×2 (08:39→11:18)
[2025-04-01] MEDS ORDERED: MIDAZOLAM HCL 2 MG/2 ML SINGLE DOSE VIAL ONE ×2 (08:40→11:18)
[2025-04-01] MEDS ORDERED: DEXAMETHASONE SOD PHOSPHATE 4 MG/1 ML VIAL ONE (08:40)
[2025-04-01] MEDS ORDERED: ONDANSETRON 4 MG/2 ML VIAL ONE (08:40)
[2025-04-01] MEDS ORDERED: LIDOCAINE HCL 2% 100 MG/5 ML DISP.SYRIN ONE (11:17)
[2025-04-01] MEDS: ceFAZolin SODIUM 1 GM VIAL IVPB ONE (11:26)
[2025-04-01] MEDS ORDERED: ePHEDrine SULFATE 50 MG/1 ML AMPULE ONE (11:33)
[2025-04-01] MEDS ORDERED: ACETAMINOPHEN 325 MG TABLET (FP) PO PRN (12:48)
[2025-04-01] MEDS: SODIUM CHLORIDE 1,000 ML IV SCH (14:13)
[2025-04-01] MEDS: GABAPENTIN 300 MG CAPSULE PO SCH (14:13)
[2025-04-01] MEDS: HEPARIN NA (PORCINE) 5,000 UNITS/ML 1ML VIAL SQ SCH (14:13)
[2025-04-01] MEDS: INSULIN ASPART SLIDING SCALE (NOVOLOG) 1 VIAL SQ SCH (16:35)
[2025-04-01] MEDS: CEFTRIAXONE 1 G/50 ML PREMIX 50 ML IVPB SCH (17:11)
[2025-04-01] MEDS: ONDANSETRON 4 MG/2 ML VIAL IVPUSH ONE (17:11)
[2025-04-01] MEDS: DOCUSATE SODIUM 100 MG CAPSULE (FP) PO SCH (21:18)
[2025-04-01] MEDS: PANTOPRAZOLE SODIUM 40 MG VIAL IVPUSH SCH (21:19)
[2025-04-01] MEDS: ATORVASTATIN CA 20 MG TABLET (FP) PO SCH (21:19)
[2025-04-01] MEDS: MAG HYDROX/AL HYDROX/SIMETH 30 ML UNIT-DOSE CUP PO ONE (22:05)
[2025-04-02] MEDS ORDERED: MAGNESIUM CITRATE 300 ML BOTTLE PO PRN (10:04)
[2025-04-02] MEDS: POLYETHYLENE GLYCOL (HEALTHYLAX) 3350 17 GM PACKET PO SCH (10:09)
[2025-04-02] MEDS: BISACODYL 5 MG TABLET.DR (FP) PO ONE (10:09)
[2025-04-02] MEDS: TAMSULOSIN HCL 0.4 MG CAP PO SCH (10:10)
[2025-04-02] MEDS: amLODIPine BESYLATE 5 MG TABLET (FP) PO SCH (10:10)
[2025-04-02 11:02] LABS: ABSOLUTE IMMATURE GRANULOCYTES 0.07 x10^3/uL (0.0-0.031); BASOPHILS # 0.02 x10^3/uL (0.01-0.08); EOSINOPHIL % 0.5 % (0.8-7.0); EOSINOPHILS # 0.06 x10^3/uL (0.04-0.54); HEMOGLOBIN 11.3 g/dL (13.7-17.5); MCHC 33.2 g/dl (32.3-36.5); MEAN CELL VOLUME 94.7 fl (79.0-92.2); MEAN PLT VOLUME 10.5 fl (9.4-12.4); MONOCYTE # 0.93 x10^3/uL (0.30-0.82); MONOCYTE % 8.4 % (5.3-12.2); PLATELET COUNT 225 x10^3/uL (163-337); RDW 13.8 % (12.2-16.6)
[2025-04-02] MEDS: SODIUM PHOSPHATE/NA BIPHOS 133 ML ENEMA RC ONE (11:15)
[2025-04-02 11:22] LABS: CALCIUM 8.9 mg/dL (8.5-10.1)
[2025-04-02 11:26] LABS: CREATININE 1.3 mg/dL (0.55-1.3)
[2025-04-02] MEDS: SODIUM CHLORIDE 0.45% 1,000 ML IV SCH (14:59)
[2025-04-02 16:49] LABS: BLOOD UREA NITROGEN 23.6 mg/dL (7-18); POTASSIUM 4.1 mmol/L (3.5-5.1)
[2025-04-03 09:07] LABS: ABSOLUTE IMMATURE GRANULOCYTES 0.06 x10^3/uL (0.0-0.031); BASOPHILS # 0.02 x10^3/uL (0.01-0.08); EOSINOPHIL % 3.9 % (0.8-7.0); EOSINOPHILS # 0.27 x10^3/uL (0.04-0.54); HEMATOCRIT 30.7 % (40.1-51.0); HEMOGLOBIN 10.4 g/dL (13.7-17.5); MCHC 33.9 g/dl (32.3-36.5); MEAN CELL VOLUME 95.9 fl (79.0-92.2); MEAN PLT VOLUME 10.1 fl (9.4-12.4); MONOCYTE # 0.75 x10^3/uL (0.30-0.82); MONOCYTE % 10.8 % (5.3-12.2); PLATELET COUNT 210 x10^3/uL (163-337); RDW 13.8 % (12.2-16.6)
[2025-04-03 09:53] LABS: POTASSIUM 3.6 mmol/L (3.5-5.1)
[2025-04-03 10:01] LABS: CALCIUM 8.8 mg/dL (8.5-10.1)
[2025-04-03 10:04] LABS: CREATININE 0.9 mg/dL (0.55-1.3)
[2025-04-03 12:30] VITALS: RESP 18
[2025-04-03] MEDS: SODIUM CHLORIDE 1,000 ML IV SCH (14:05)
[2025-04-03] MEDS: FINASTERIDE 5 MG TABLET (FP) PO SCH (14:05)
[2025-04-03 17:52] VITALS: BP 143/62; PULSE 86; TEMP 98.6
[2025-04-03] MEDS ORDERED: TAMSULOSIN HCL 0.4 MG CAP PO SCH ×2 (20:30→22:00)
== END 2025-04-03 17:53 | disposition home or self-care (01) | DRG 661 ==
LOC: JER 09:20 → JERBED 18:05 → J5S 23:48
PROVIDERS: ADMIT Internal Medicine; ATTEND Internal Medicine
PROC: BT1FZZZ Fluoroscopy of Left Kidney, Ureter and Bladder (ICD-10-PCS; 2025-04-01)
PROC: 0TC78ZZ Extirpation of Matter from Left Ureter, Via Natural or Artificial Opening Endoscopic (ICD-10-PCS; principal; 2025-04-01 08:30)
PROC: 0T778DZ Dilation of Left Ureter with Intraluminal Device, Via Natural or Artificial Opening Endoscopic (ICD-10-PCS; 2025-04-01 08:30)
DX: N13.0 Hydronephrosis with ureteropelvic junction obstruction (principal); N17.9 Acute kidney failure, unspecified; E78.5 Hyperlipidemia, unspecified; I25.2 Old myocardial infarction; I25.10 Atherosclerotic heart disease of native coronary artery without angina pectoris; N40.0 Benign prostatic hyperplasia without lower urinary tract symptoms; D64.9 Anemia, unspecified; N13.2 Hydronephrosis with renal and ureteral calculous obstruction
CPT/HCPCS: 36415; 74177-TC; 76000-TC-FY; 80048; 80053; 80076; 81003; 82607; 82728; 82746; 82962; 83036; 83540; 83550; 83605; 83690; 85025; 85027; 85610; 85730; 86850; 86900; 86901; 87086; 87517; 87522; 93005; 93010; 94760; 97116-GP; 99285-25; C1758; C2617; J0131; J1644; Q9967